=== PATIENT | female | born 1935 | race Caucasian/White ===

== ENCOUNTER 2019-03-31 16:39 | Observation (INO) ==
[2019-03-31 19:12] LABS: Basophils % 0.2 % (0.0-0.8); Eosinophils % 0.2 % (0.00-10.9); Hematocrit 40.1 VOL% (35.7-47.0); Immature Granulocytes % 0.3 %; Immature Granulocytes Absolute 0.03 #; Lymphocytes # 1.2 10*3/uL (1.4-4.0); Lymphocytes % 12.3 % (21.3-54.2); Mean Corpuscular HGB Conc 32.4 GM/DL (32-36); Mean Corpuscular Volume 97.3 FL (87-102); Mean Platelet Volume 10.9 FL (9.6-12.0); Monocytes % 4.4 % (1.7-12.7); Neutrophils % 82.6 % (38.7-73.9); Platelet Count 336 T/CUMM (130-400); Red Blood Count 4.12 MC/CUMM (3.8-5.5); Red Cell Distribution Width 11.5 % (9.3-17.3); White Blood Count 9.8 T/CUMM (4-12)
[2019-03-31 19:19] LABS: INR 0.9; PT Patient Result 9.5 SECS (9.6-12.2)
[2019-03-31 19:30] LABS: Alanine Aminotransferase 31 U/L (13-56); Albumin 4.1 G/DL (3.4-5.0); Alkaline Phosphatase 74 U/L (45-117); Amylase 59 U/L (25-115); Aspartate Amino Transferase 18 U/L (0-37); Bilirubin,Total < 0.39 MG/DL (0.2-1.0); Blood Urea Nitrogen 23 MG/DL (7-18); Calcium 9.5 MG/DL (8.5-10.1); Estimated Glom Filtration Rate 44 ML/MIN; Glucose 92 MG/DL (74-106); Osmolality,Calculated 282.4 MOS/KG (273-304); Total Protein 8.3 G/DL (6.4-8.3); Troponin I 0.059 NG/ML (0.00-0.045)
[2019-03-31] MEDS ORDERED: DEXTROSE 5% NACL 0.9% 250 ML IV SCH (19:30)
[2019-03-31 20:03] LABS: Apearance,Urine CLEAR (Clear); Bacteria,Urine Occasional /HPF (Few); Bilirubin,Urine Negative (Negative); Blood, Urine Negative (Negative); Glucose,Urine (UA) Negative (Negative); Ketones,Urine Negative (Negative); Nitrite,Urine Negative (Negative); Protein,Urine Negative; RBC,Urine 2 /HPF (0-4); Squamous Epithelial Cell,Urine Occasional /HPF (0-10); Urine Color Straw (Yellow); Urine Specific Gravity 1.008 (1.001-1.035); Urine Urobilinogen < 2.0 EU/DL (0.2-1.0); WBC,Urine 3 /HPF (0-6)
[2019-03-31] MEDS ORDERED: BRIMONIDINE 0.2% OPH SOLN 5 ML BOTTLE BOTH EYES SCH (21:00)
[2019-03-31] MEDS ORDERED: LATANOPROST 0.005% OPH SOLN 2.5 ML BOTTLE BOTH EYES SCH (21:00)
[2019-03-31] MEDS ORDERED: DEXTROSE 50% 25 GM/50 ML VIAL IV PRN (21:05)
[2019-03-31] MEDS ORDERED: GLUCAGON 1 MG VIAL IM PRN (21:05)
[2019-03-31] MEDS ORDERED: ACETAMINOPHEN 325 MG TABLET PO PRN (21:25)
[2019-03-31] MEDS ORDERED: DOCUSATE SODIUM 100 MG CAPSULE PO PRN (21:25)
[2019-03-31] MEDS ORDERED: ONDANSETRON 4 MG/2 ML VIAL IV PRN (21:25)
[2019-03-31] MEDS ORDERED: ENOXAPARIN 40 MG/0.4 ML SYRINGE SUBCUT SCH (21:30)
[2019-03-31] MEDS: hydrALAZINE 25 MG TABLET PO SCH (22:24)
[2019-03-31] MEDS ORDERED: INSULIN LISPRO 100 UNIT/ML SUBCUT SCH (23:00)
[2019-04-01 04:47] LABS: Basophils % 0.4 % (0.0-0.8); Eosinophils # 0.1 10*3/uL (0.0-0.87); Eosinophils % 0.7 % (0.00-10.9); Hematocrit 37.1 VOL% (35.7-47.0); Hemoglobin 12.1 GM/DL (12.0-16.0); Immature Granulocytes % 0.4 %; Immature Granulocytes Absolute 0.03 #; Lymphocytes # 1.4 10*3/uL (1.4-4.0); Lymphocytes % 19.5 % (21.3-54.2); Mean Corpuscular HGB Conc 32.6 GM/DL (32-36); Mean Corpuscular Volume 97.6 FL (87-102); Mean Platelet Volume 11.1 FL (9.6-12.0); Monocytes % 7.4 % (1.7-12.7); Neutrophils % 71.6 % (38.7-73.9); Platelet Count 271 T/CUMM (130-400); Red Cell Distribution Width 11.5 % (9.3-17.3); White Blood Count 6.9 T/CUMM (4-12)
[2019-04-01 05:01] LABS: Osmolality,Calculated 284.4 MOS/KG (273-304)
[2019-04-01] MEDS: INSULIN LISPRO 100 UNIT/ML SUBCUT SCH ×3 (05:41→13:03)
[2019-04-01] MEDS ORDERED: ASPIRIN EC 81 MG TABLET PO SCH (09:00)
[2019-04-01] MEDS ORDERED: MULTIVITAMIN (CENTRUM) TABLET PO SCH (09:00)
[2019-04-01] MEDS ORDERED: ASCORBIC ACID 500 MG TABLET PO SCH (09:00)
[2019-04-01] MEDS ORDERED: METOPROLOL SUCCINATE XL 25 MG TABLET PO SCH (09:00)
[2019-04-01] MEDS ORDERED: VERAPAMIL SR 180 MG TABLET PO SCH (09:00)
[2019-04-01] MEDS ORDERED: CRANBERRY FRUIT 250 MG PO SCH (09:00)
[2019-04-01] MEDS ORDERED: [UNRECOGNIZED DRUG - OTHER] PO SCH (09:00)
[2019-04-01] MEDS ORDERED: TURMERIC ROOT EXTRACT 1000 MG PO SCH (09:00)
[2019-04-01] MEDS ORDERED: POLYCARBOPHIL 625 MG TABLET PO SCH (09:00)
[2019-04-01] MEDS ORDERED: GLUCOS SUL PO SCH (09:00)
[2019-04-01] MEDS ORDERED: LOSARTAN 50 MG TABLET PO SCH (09:00)
[2019-04-01] MEDS: hydrALAZINE 25 MG TABLET PO SCH (09:45)
[2019-04-01 12:06] VITALS: BP 173/82
[2019-04-01] MEDS ORDERED: PNEUMOCOCCAL VACCINE (23 VALENT) 0.5 ML VIAL IM ONE (13:20)
[2019-04-01] MEDS ORDERED: Bifidobacterium Infantis [Align] 4 MG PO SCH (21:00)
[2019-04-05] MEDS ORDERED: ERGOCALCIFEROL 50,000 UNIT CAPSULE PO SCH (21:30)
== END 2019-04-01 14:46 | disposition home or self-care (01) ==
LOC: N.ED 16:39 → N.EDINP 16:39 → N.2W 21:40
PROVIDERS: ADMIT Internal Medicine Geriatric Medicine; ATTEND Internal Medicine Geriatric Medicine

== ENCOUNTER 2021-06-01 15:17 | Observation (INO) ==
[2021-06-01 15:46] LABS: Basophils % 0.1 % (0.0-0.8); Hematocrit 35.6 VOL% (35.7-47.0); Hemoglobin 11.5 GM/DL (12.0-16.0); Immature Granulocytes % 0.7 %; Immature Granulocytes Absolute 0.09 #; Lymphocytes # 1.2 10*3/uL (1.4-4.0); Lymphocytes % 8.8 % (21.3-54.2); Mean Corpuscular HGB Conc 32.3 GM/DL (32-36); Mean Corpuscular Volume 96.7 FL (87-102); Mean Platelet Volume 10.9 FL (9.6-12.0); Monocytes % 9.2 % (1.7-12.7); Neutrophils % 81.2 % (38.7-73.9); Platelet Count 344 T/CUMM (130-400); Red Blood Count 3.68 MC/CUMM (3.8-5.5); Red Cell Distribution Width 12.8 % (9.3-17.3); White Blood Count 13.7 T/CUMM (4-12)
[2021-06-01 15:52] LABS: Bilirubin,Urine Negative (Negative); Blood, Urine Negative (Negative); Glucose,Urine (UA) >=500 mg/dL (Negative); Hyaline Casts,Urine 1 /LPF (0-3); Ketones,Urine 20 mg/dL (Negative); Mucus,Urine Moderate /LPF (Occasional); Nitrite,Urine Negative (Negative); Protein,Urine 30 MG/DL; RBC,Urine 5 /HPF (0-4); Squamous Epithelial Cell,Urine Occasional /HPF (0-10); Urine Appearance CLEAR (Clear); Urine Color Yellow (Yellow); Urine Specific Gravity 1.023 (1.001-1.035); Urine Urobilinogen < 2.0 EU/DL (<2.0)
[2021-06-01 15:55] LABS: PT Patient Result 11.4 SECS (10.5-12.0); Partial Thromboplastin Time 22.1 SECS (23.8-32.1)
[2021-06-01 16:01] LABS: Alanine Aminotransferase 15 U/L (13-56); Alkaline Phosphatase 48 U/L (45-117); Aspartate Amino Transferase 10 U/L (0-37); Blood Urea Nitrogen 29 MG/DL (7-18); Calcium 9.6 MG/DL (8.5-10.1); Carbon Dioxide 19 MMOL/L (21-32); Estimated Glom Filtration Rate 42 ML/MIN; Glucose 294 MG/DL (74-106); Osmolality,Calculated 286.1 MOS/KG (273-304); Sodium 135 MMOL/L (136-145); Total Protein 7.8 G/DL (6.4-8.2)
[2021-06-01] MEDS ORDERED: cefTRIAXone 1,000 MG in SODIUM CHLORIDE 0.9% 100 ML IV STA (16:07)
[2021-06-01 16:10] LABS: Barbiturates Screen,Urine Negative (Negative); Benzodiazepines Screen,Urine Negative (Negative); Cannabinoid Screen,Urine Negative (Negative); Opiate Screen,Urine Negative (Negative); Phencyclidine Screen,Urine Negative (Negative)
[2021-06-01] MEDS ORDERED: MORPHINE 2 MG/1 ML SYRINGE IV PRN (18:15)
[2021-06-01] MEDS: LORazepam 2 MG/1 ML VIAL IV PRN (19:07)
[2021-06-02] MEDS: LORazepam 2 MG/1 ML VIAL IV PRN (05:42)
[2021-06-02 11:57] VITALS: BP 131/60
== END 2021-06-02 12:18 | disposition expired ==
LOC: N.ED 15:17 → N.EDINP 15:17 → SUATTDRO 18:15 → N.3E 20:54
PROVIDERS: ADMIT Internal Medicine; ATTEND Internal Medicine